=== PATIENT | male | born 1995 | race Two or more races ===

== ENCOUNTER 2024-12-23 14:12 | Emergency (ER) | payer SELFPAY ==
[~2024-12-23] VITALS: Ht 165.1 cm; Wt 80.0 kg
[2024-12-23 14:44] VITALS: BP 116/72; PULSE 75; RESP 18; TEMP 98.2; O2SAT 99
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
[2024-12-23] MEDS ORDERED: METH-1182 PO (15:31)
[2024-12-23] MEDS ORDERED: IBUP-1456 PO (15:31)
== END 2024-12-23 15:35 | disposition home or self-care (01) ==
LOC: ER 14:27
DX: S16.1XXA Strain of muscle, fascia and tendon at neck level, initial encounter (principal); R51.9 Headache, unspecified; Z79.1 Long term (current) use of non-steroidal anti-inflammatories (NSAID); V89.2XXA Person injured in unspecified motor-vehicle accident, traffic, initial encounter; Y93.89 Activity, other specified; Y92.410 Unspecified street and highway as the place of occurrence of the external cause; Y99.8 Other external cause status
CPT/HCPCS: 70450; 72040